=== PATIENT | male | born 1950 | race Caucasian/White ===

== ENCOUNTER 2020-10-07 11:33 | Outpatient (RCR) | payer MEDICARE, SELFPAY ==
[2015-11-16 00:22] VITALS: BMI 34.3
== END 2020-10-07 23:59 ==
LOC: IMMUN 11:33
PROVIDERS: PCP Family Medicine; Visit Provider Family Medicine
DX: Z23 Encounter for immunization (principal)
CPT/HCPCS: 0011A; 0012A; 91301

== ENCOUNTER 2021-08-07 09:55 | Emergency (ER) | payer MEDICARE, SELFPAY ==
[2021-08-07 09:56] VITALS: BP 109/72; PULSE 139; RESP 18; TEMP 36.2; O2SAT 94; BMI 28.1
[2021-08-07 10:40] LABS: Mucous, Urine 0 SEEN /hpf (<or=2+)
--- NOTE | 2021-08-07 10:43 | EDS_ITS ---
HPI History of Present Illness Chief Complaint: Complaint Informant: patient Narrative Narrative: Patient is a 71-year-old male presenting with urinary symptoms and fever. Patient states he has had a hard time urinating in the past few days and feels like there is needles in his penis whenever he tries to pee. He does not feel like he is emptying his bladder completely. He is had frequency of urination. He is also developed sweats, nausea and vomiting. He did not take his medications this morning because he did not think you be able to keep them down including his metoprolol. He denies any history of BPH or urinary tract infections. He denies any back pain. Denies any rash. Denies any upper respiratory symptoms. He notes that he did recently have an eye surgery and has been using eyedrops. He knows one of them is prednisone and the other are antibiotics. He is not sure if this could be related. PFSH PFSH Home Medications metoprolol succinate 50 mg PO DAILY 11/15/15 [History Last Taken 11/15/15] amoxicillin-pot clavulanate 875 mg PO Q12H #10 tablet 11/19/15 [Rx Last Taken Unknown] levofloxacin [Levaquin] 750 mg PO DAILY #5 tab 11/19/15 [Rx Last Taken Unknown] oxycodone-acetaminophen 1 - 2 tab PO Q6H PRN PRN #30 tab 11/19/15 [Rx Last Taken Unknown] pantoprazole 40 mg PO BID #60 tablet 11/19/15 [Rx Last Taken Unknown] levofloxacin 750 mg PO DAILY #6 tab 08/07/21 [Rx Last Taken Unknown] ondansetron HCl [Zofran] 4 mg PO Q8H PRN #14 tab 08/07/21 [Rx Last Taken Unknown] Allergy/AdvReac Type Severity Reaction Status Date / Time cephalexin monohydrate Allergy Rash Verified 08/07/21 09:57 [From Keflex] Social History Smoking Status: Former smoker ROS ROS ED Constitutional Constitutional ED: Reports chills, fever(s) and sweats Eyes Eyes: Denies blurry vision or change in vision ENT ENT ED: Denies ear pain, rhinorrhea or sore throat Cardiovascular Cardiovascular: Denies chest pain or palpitations Respiratory/Chest Respiratory/Chest: Denies cough or dyspnea Gastrointestinal Gastrointestinal: Reports nausea and vomiting; Denies abdominal pain, constipa tion or diarrhea Genitourinary Genitourinary ED: Reports dysuria and urinary frequency; Denies hematuria Musculoskeletal Musculoskeletal: Denies arthralgias, back pain or myalgias Integumentary Denies rash Neurologic Neurologic: Denies headache(s) or weakness Psychiatric Psychiatric: Denies depression EXAM Physical Exam Const Vital Signs: 08/07/21 09:56 08/07/21 11:50 08/07/21 13:00 Temperature 97.2 F L 98.6 F 98.4 F Temperature Source Temporal Axillary Oral Pulse Rate 139 H 71 69 Respiratory Rate 18 Blood Pressure 109/72 123/66 H 117/68 Blood Pressure Mean 84 85 84 Pulse Ox 94 Oxygen Delivery Method Room Air 08/07/21 14:03 Temperature Temperature Source Pulse Rate 77 Respiratory Rate 18 Blood Pressure 117/59 L Blood Pressure Mean Pulse Ox 96 Oxygen Delivery Method Positive well nourished and well developed General Appearance ED: well developed HEENT Reports TM's clear and moist mucous membranes Tympanic Membrane ED: Yes TM's clear Eyes PERRL and EOMs intact bilaterally Neck supple and no JVD Chest Wall inspection of chest normal Resp normal respiratory effort and clear to auscultation bilaterally Cardio regular rhythm and no murmurs Rate: tachycardic GI normal to inspection, nondistended, normoactive bowel sounds and non-tender GI Narrative: No palpable bladder appreciated. No tenderness to palpation in the suprapubic region Palpation: soft Back/Spine no CVA tenderness Extremity normal to inspection Neuro oriented x3 Sensorium / Orientation: alert Motor Exam: Negative for general weakness Psych mental status grossly normal Skin no rashes or lesions noted and no wounds MDM MDM MDM Narrative Medical decision making narrative: Patient is evaluated for painful urination with associated sweating, nausea and vomiting. He feels dehydrated. On arrival patient is significantly tachycardic however he admits he did not take his metoprolol this morning because I did not get to keep it down. He is given Zofran, IV fluids and his oral metoprolol. His abdomen is soft and nontender. He is not having any pain that could be consistent with an infected kidney stone or other acute intra-abdominal process. I do not think imaging of the abdomen is indicated at this time. A bladder scan performed to rule out urinary retention. Does not show any urine in the bladder. I believe this is accurate based on his physical exam. Patient's lab work is remarkable for a leukocytosis of 22.2 as well as a bump in his creatinine 1.89. Urinalysis is consistent with infection. Urine culture sent. As patient has allergy to cephalosporins he is given a dose of Levaquin. His lactate is normal at 1.9. Given his mildly elevated creatinine, significant leukocytosis and symptoms I did discuss with the hospitalist, Dr. Putnam, admission for 24 hours IV antibiotics and IV fluids. Given that patient is currently able to take p.o. after receiving medications in the ER and is feeling better and is not failed outpatient he declines admission and would prefer the patient to be treated outpatient. Patient is agreeable with this. Patient is discharged home with a prescription for Levaquin as well as Zofran. He is counseled on strict return precautions including signs of failure of outpatient antibiotic treatment, worsening fever, nausea or signs of dehydration. Patient agreeable to splenic care. Patient discharged home in improved and stable condition. Lab Data Attestation: I reviewed the patient's lab results. Labs: Laboratory Results - last 24 hr 08/07/21 08/07/21 08/07/21 10:30 10:55 10:55 WBC 22.2 H RBC 5.24 Hgb 16.3 Hct 48.5 MCV 92.6 MCH 31.1 MCHC 33.6 RDW Std Deviation 42.8 RDW Coeff of [place] 12.5 Plt Count 209 MPV 10.4 Immature Gran % (Auto) 1.500 H Neut % (Auto) 82.1 H Lymph % (Auto) 7.4 L [place] % (Auto) 8.4 Eos % (Auto) 0.2 Baso % (Auto) 0.4 Absolute Neuts (auto) 18.2 H Absolute Lymphs (auto) 1.64 Nucleated RBC % 0 Differential Comment COMMENT Diff Path Review May foll Sodium 135 L Potassium 3.7 Chloride 102 Carbon Dioxide 23.0 Anion Gap 10 BUN 26 H Creatinine 1.89 H Estim Creat Clear Calc 35.19 Est GFR (MDRD) Af Amer 46 L Est GFR (MDRD) Non-Af 38 L BUN/Creatinine Ratio 13.8 Glucose 176 H Lactic Acid Calcium 9.1 Urine Color Yellow Urine Clarity Cloudy Urine pH 5.0 Ur Specific [place] 1.020 Urine Protein 500 H Urine Glucose (UA) Normal Urine Ketones 15 H Urine Occult Blood 250 H Urine Nitrite Positive H Urine Bilirubin 1 H Urine Urobilinogen 4 H Ur Leukocyte Esterase 500 H Urine RBC 50-100 SEEN Urine WBC >100 SEEN Ur Squamous Epith Cells 0-5 SEEN Urine Bacteria 3+ Urine Mucus 0 SEEN 08/07/21 10:55 WBC RBC Hgb Hct MCV MCH MCHC RDW Std Deviation RDW Coeff of [place] Plt Count MPV Immature Gran % (Auto) Neut % (Auto) Lymph % (Auto) [place] % (Auto) Eos % (Auto) Baso % (Auto) Absolute Neuts (auto) Absolute Lymphs (auto) Nucleated RBC % Differential Comment Diff Path Review Sodium Potassium Chloride Carbon Dioxide Anion Gap BUN Creatinine Estim Creat Clear Calc Est GFR (MDRD) Af Amer Est GFR (MDRD) Non-Af BUN/Creatinine Ratio Glucose Lactic Acid 1.9 Calcium Urine Color Urine Clarity Urine pH Ur Specific [place] Urine Protein Urine Glucose (UA) Urine Ketones Urine Occult Blood Urine Nitrite Urine Bilirubin Urine Urobilinogen Ur Leukocyte Esterase Urine RBC Urine WBC Ur Squamous Epith Cells Urine Bacteria Urine Mucus Discharge Plan Triage Chief Complaint: Complaint ED Provider: Carin Wang Dx/Rx/DC Orders Clinical Impression: Acute UTI, Nausea & vomiting, Leukocytosis Instructions: Nausea Vomit Control, ED Bladder Infection, Male (Adult) Prescriptions: New levofloxacin 750 mg tablet 750 mg PO DAILY Qty: 6 RF: 0 ondansetron HCl [Zofran] 4 mg tablet 4 mg PO Q8H PRN (Reason: nausea and vomiting) Qty: 14 RF: 0 No Action metoprolol succinate 200 MG tablet extended release 24 hr 50 mg PO DAILY RF: 0 amoxicillin-pot clavulanate 875 MG tablet 875 mg PO Q12H Qty: 10 RF: 0 levofloxacin [Levaquin] 750 MG tablet 750 mg PO DAILY Qty: 5 RF: 0 pantoprazole 40 MG tablet 40 mg PO BID Qty: 60 RF: 1 oxycodone-acetaminophen 1 TABLET tablet 1 - 2 tab PO Q6H PRN PRN (Reason: Pain) Qty: 30 RF: 0 Primary Care Provider: Kraig Melendez Referrals: Kraig Melendez MD [Primary Care Provider] - Activity Restrictions/Additional Instructions: Please return to the emergency room if you do not have any improvement after your second dose of antibiotics or if you develop worsening vomiting, concern for dehydration or cannot urinate. Disposition Disposition: Home, Self Care Discharge Date/Time: 08/07/21 14:05
[2021-08-07] MEDS: 0.9% Normal Saline 1,000 ML 1000 ML IV (10:51)
[2021-08-07] MEDS: Ondansetron 4 MG/2 ML Vial IV (10:52)
[2021-08-07 10:56] LABS: Color, Urine Yellow (Yellow); Glucose, Dipstick Normal (Normal); Ketone-Dipstick 15 mg/dl (Negative); Leukocyte Esterase-Dipstick 500 /ul (Negative); Nitrite-Dipstick Positive (Negative); Occult Blood-Urine 250 /ul (Negative); Protein-Dipstick 500 mg/dl (Negative); Urine Clarity Cloudy (Clear); Urine Urobilinogen 4 mg/dl (Normal)
[2021-08-07 10:58] LABS: Urine Bilirubin Dipstick 1 mg/dL (Negative)
[2021-08-07 11:04] LABS: Bacteria 3+ /hpf (None Seen); Red Blood Cells-Urine 50-100 SEEN /hpf (0-5); Squamous Epithelial Cells - UA 0-5 SEEN /hpf (0-5); White Blood Cells >100 SEEN /hpf (0-5)
[2021-08-07 11:06] LABS: Absolute Lymphocyte Count 1.64 X10^3/uL (0.83-4.51); Absolute Neutrophil Count 18.2 X10^3/uL (2.0-7.7); Basophil# 0.09 X10^3/uL; Basophil% 0.4 % (0-1); Eosinophil# 0.04 X10^3/uL; Eosinophils% 0.2 % (0-5); Hematocrit 48.5 % (40-54); Hemoglobin 16.3 g/dL (13.0-16.5); Lymphocyte # 1.64 X10^3/ul (0.83-4.51); Lymphocyte % 7.4 % (19-41); Mean Corp Hgb Conc 33.6 g/dL (32-36); Mean Corpuscular Hgb 31.1 pg (27.0-32.0); Mean Corpuscular Volume 92.6 fL (80-94); Mean Platelet Vol. 10.4 fl (6.2-12.0); Monocyte# 1.86 X10^3/uL; Monocyte% 8.4 % (0-10); NRBC Flagged by Analyzer 0 % (0-5); Neutrophil # 18.19 X10^3/uL (2.7-7.7); Neutrophil % 82.1 % (47-70); POSITIVE DIFFERENTIAL YES; Platelet Count 209 K/mm3 (150-450); RBC Distribution Width CV 12.5 % (11.6-14.6); RBC Distribution Width SD 42.8 fl (35.1-43.9); Red Blood Count 5.24 M/mm3 (4.6-6.2); White Blood Count 22.2 K/mm3 (4.4-11.0)
[2021-08-07 11:07] LABS: Differential Indicated SCAN CRITERIA MET
[2021-08-07 11:16] LABS: Anion Gap 10 (5-15); BUN 26 mg/dL (7-18); BUN/Creat Ratio 13.8 RATIO (10-20); Calcium,Total 9.1 mg/dL (8.5-10.1); Chloride 102 mmol/L (98-107); Creatinine, Serum 1.89 mg/dL (0.70-1.30); EST Glomerular Filtration Rate 38 mL/min (>60); Est Glom Filt Rate - Afr Amer 46 mL/min (>60); Estimated Creatinine Clearance 35.19 ml/min; Glucose 176 mg/dL (74-106); Potassium 3.7 mmol/L (3.5-5.1); Sodium Level 135 mmol/L (136-145)
[2021-08-07 11:39] LABS: Lactic Acid 1.9 mmol/L (0.4-1.9)
[2021-08-07 11:50] VITALS: BP 123/66; PULSE 71; TEMP 37
[2021-08-07] MEDS: Metoprolol(XL)Succ 50 MG Tablet PO (11:53)
[2021-08-07] MEDS: levoFLOXacin 750 MG Tablet PO (12:50)
[2021-08-07 13:00] VITALS: BP 117/68; PULSE 69; TEMP 36.9
[2021-08-07] MEDS: Acetaminophen 500 MG Tablet PO (13:31)
[2021-08-07 14:03] VITALS: BP 117/59; PULSE 77; RESP 18; O2SAT 96
[2021-08-10 10:45] LABS: Pathologist Review Reviewed
== END 2021-08-07 14:05 | disposition home or self-care (01) ==
PROVIDERS: Emergency Provider Emergency Medicine; PCP Family Medicine
DX: N39.0 Urinary tract infection, site not specified (principal); R11.2 Nausea with vomiting, unspecified; D72.829 Elevated white blood cell count, unspecified; Z87.891 Personal history of nicotine dependence
CPT/HCPCS: 80048; 81001; 83605; 85025; 87040; 87086; 87088; 87186; 96361; 96374; 99282; J7030; A4216; J2405